=== PATIENT | male | born 1955 | race Caucasian/White ===

== ENCOUNTER 2021-12-10 01:12 | Emergency (ER) | payer OTHER ==
--- NOTE | 2021-12-10 01:20 | NUR ---
PATIENT ARRIVED [facility] WITH COMPLAINTS OF SLIPPING AND FALLING IN THE BATHROOM, PATIENT DENIES HITTING HEAD OR LOC. HE STATES THAT HE WAS GETTING OFF THE POT WAS PULLING UP PANTS WHEN HE GOT HIS FEET TANGLED AND WENT DOWN TO THE FLOOR RIGHT FOOT/ANKLE DISCOLORED , DENEIS ANY BLODD THINNERS, TENDER TO TOUCH, NOTICEABLE DEFORMED, COOL TO THE TOUCH
[2021-12-10] MEDS ORDERED: propofol 10mg/ml 20ml vial IV ONE (01:45)
--- NOTE | 2021-12-10 01:53 | NUR ---
xray at bedside at this time
--- NOTE | 2021-12-10 01:59 | NUR ---
RESPIRATOPRY AT BEDSIDE
--- NOTE | 2021-12-10 02:23 | NUR ---
PATIENT IS DOING WELL FOLLOWING THE CLOSED REDUCTION. ALERT AND VERBALLY RESPONSIVE
--- NOTE | 2021-12-10 02:24 | NUR ---
X RAY AT BEDSIDE
[2021-12-10] MEDS ORDERED: HYDR-3965 PO (02:50)
[2021-12-10 03:02] VITALS: BP 139/86
--- NOTE | 2021-12-10 04:00 | NUR ---
CALLED [facility] TO TAKE PT HOME, ETA IS 40MIN
== END 2021-12-10 04:16 | disposition home or self-care (01) ==
LOC: ER 01:12
DX: S82.854A Nondisplaced trimalleolar fracture of right lower leg, initial encounter for closed fracture (principal); Z79.899 Other long term (current) drug therapy; W19.XXXA Unspecified fall, initial encounter; Y93.89 Activity, other specified; Y92.89 Other specified places as the place of occurrence of the external cause; Y99.8 Other external cause status
CPT/HCPCS: 27786; 27818; 73600; 94760; 94799; 99152; 99153; 99285

== ENCOUNTER 2021-12-22 06:21 | Emergency (ER) | payer OTHER ==
[~2021-12-22] VITALS: Ht 174 cm; Wt 66.8 kg
[~2021-12-22 06:21] MED LIST: HYDR-3965 PO
[2021-12-22 08:12] VITALS: BP 155/92
== END 2021-12-22 08:15 | disposition home or self-care (01) ==
LOC: ER 06:22
DX: S82.851D Displaced trimalleolar fracture of right lower leg, subsequent encounter for closed fracture with routine healing (principal); L97.819 Non-pressure chronic ulcer of other part of right lower leg with unspecified severity; Z79.899 Other long term (current) drug therapy; W19.XXXD Unspecified fall, subsequent encounter
CPT/HCPCS: 99284

== ENCOUNTER 2021-12-28 16:56 | Emergency (ER) | payer OTHER ==
[~2021-12-28] VITALS: Ht 172.7 cm; Wt 67.3 kg
--- NOTE | 2021-12-28 19:15 | NUR ---
PATIENT HERE STATES THAT HE HAS THIS DISLOCATION THAT TOOK PLACE 3 WEEKS AGO, HE STATES THAT HE COULDNT GET IN TO SEE AN ORTHO SURGEON STATES [facility] AND WAS INFOMRED TO COME TO THE ER, DENIES ANT REINJURY TO THE LOCATION
--- NOTE | 2021-12-28 19:56 | NUR ---
PATIENT TO CT
[2021-12-28 22:56] VITALS: BP 124/78
== END 2021-12-28 22:58 | disposition home or self-care (01) ==
LOC: ER 16:57
DX: S82.851D Displaced trimalleolar fracture of right lower leg, subsequent encounter for closed fracture with routine healing (principal); M25.571 Pain in right ankle and joints of right foot; Z79.899 Other long term (current) drug therapy; X58.XXXD Exposure to other specified factors, subsequent encounter
CPT/HCPCS: 73700; 99284

== ENCOUNTER 2022-01-02 11:20 | Inpatient (IN) | payer OTHER ==
[~2022-01-02] VITALS: Ht 325.1 cm; Wt 65.9 kg
[2022-01-02] MEDS ORDERED: normal saline 1000ML IV soln IV ONE (11:45)
[2022-01-02 12:25] LABS: BASOPHILS % (AUTO) 0.6 % (0-1); EOSINOPHILS # (AUTO) 0.1 X10'3 (0-0.9); EOSINOPHILS % (AUTO) 0.9 % (0-6); HEMATOCRIT 22.4 % (42.0-52.0); HEMOGLOBIN 7.8 g/dl (14.0-17.9); LYMPHOCYTES # (AUTO) 0.7 X10'3 (1.1-4.8); LYMPHOCYTES % (AUTO) 9.2 % (21-51); MEAN CORPUSCULAR HEMOGLOBIN 34.7 PG (27.0-31.0); MONOCYTES # (AUTO) 0.8 X10'3 (0-0.9); MONOCYTES % (AUTO) 10.7 % (2-12); NEUTROPHILS # (AUTO) 5.9 X10'3 (1.8-7.7); NEUTROPHILS % (AUTO) 78.6 % (42-75); PLATELET COUNT 334 X10'3 (140-440); RED BLOOD COUNT 2.26 X10'6 (4.70-6.10); RED CELL DISTRIBUTION WIDTH 12.8 % (11.5-14.5); WHITE BLOOD COUNT 7.5 X10'3 (4.5-11.0)
[2022-01-02 12:46] LABS: ALANINE AMINOTRANSFERASE 14 U/L (12-78); ALBUMIN 2.2 G/DL (3.4-5.0); ALBUMIN/GLOBULIN RATIO 0.6 (1.1-1.5); ALKALINE PHOSPHATASE 69 IU/L (46-116); ANION GAP 13 (8-16); ASPARTATE AMINO TRANSFERASE 13 U/L (10-37); BILIRUBIN,TOTAL 0.2 MG/DL (0.1-1.0); BLOOD UREA NITROGEN 12 MG/DL (7-18); BUN/CREATININE RATIO 13.5 (5.4-32.0); CALCIUM 8.4 MG/DL (8.5-10.1); CHLORIDE 90 MMOL/L (99-107); CREATININE 0.89 MG/DL (0.60-1.10); GLUCOSE 119 MG/DL (70-104); POTASSIUM 3.7 MMOL/L (3.5-5.1); SODIUM 125 MMOL/L (135-145); TOTAL CARBON DIOXIDE 22.5 MMOL/L (24-32); TOTAL PROTEIN 5.7 G/DL (6.4-8.2); eGFR 86 ML/MIN
[2022-01-02 12:56] LABS: ETHANOL < 0.010 GM/DL (0.0-0.010); MAGNESIUM 1.9 MG/DL (1.5-2.4)
[2022-01-02 13:21] LABS: APTT 28 SECONDS (22-32)
[2022-01-02] MEDS ORDERED: iohexol 350MG/ML 100ml bottle IV ONE ×2 (13:28→14:14)
[2022-01-02 13:49] LABS: CLARITY,URINE CLEAR (Clear); GLUCOSE, URINE 100 mg/dl (Neg); KETONES,URINE TRACE mg/dl (Neg); LEUKOCYTE ESTERASE ,URINE NEGATIVE (Neg); NITRITES, URINE NEGATIVE (Neg); OCCULT BLOOD,URINE NEGATIVE (Neg); PROTEIN,URINE NEGATIVE (Neg); UROBILINOGEN,URINE 0.2 E.U/dL (0.2-1.0)
[2022-01-02 13:53] LABS: COLOR,URINE STRAW (Yellow); UA COLLECTION TYPE VOIDED
[2022-01-02 14:02] LABS: URINE AMPHETAMINE SCREEN NEGATIVE (Neg); URINE BARBITUATE SCREEN NEGATIVE (Neg); URINE BENZODIAZEPINES SCREEN NEGATIVE (Neg); URINE CANNABINOID SCREEN NEGATIVE (Neg); URINE COCAINE SCREEN NEGATIVE (Neg); URINE METHADONE SCREEN NEGATIVE (Neg); URINE OPIATE SCREEN NEGATIVE (Neg); URINE PHENCYCLIDINE SCREEN NEGATIVE (Neg)
[2022-01-02] MEDS ORDERED: PERFLUTREN PROTEIN-A MICROSPHR (Optison) 0.22 MG/ML 3ML VIAL IV ONE (15:25)
[2022-01-02] MEDS ORDERED: morphine 2 MG/ML inj. syringe IV PRN (15:25)
[2022-01-02] MEDS ORDERED: magnesium 2GM in 50ml NS 50 ML IV PRN (15:25)
[2022-01-02] MEDS: normal saline 1000ml 1,000 ML IV SCH (15:25)
[2022-01-02] MEDS ORDERED: ondansetron/PF 4mg/2ml inj IV PRN (15:25)
[2022-01-02] MEDS ORDERED: potassium Cl 20 mEq SR tablet PO PRN (15:25)
[2022-01-02] MEDS ORDERED: potassium CL 10mEq/100ml bag 100 ML IV PRN (15:25)
[2022-01-02] MEDS ORDERED: magnesium 4gm in 100ml NS 100 ML IV PRN (15:25)
[2022-01-02] MEDS ORDERED: magnesium Cl slow-release 64mg tablet PO PRN (15:25)
--- NOTE | 2022-01-02 17:50 | NUR ---
called report, PCU having shift change, will call back in 20 min
--- NOTE | 2022-01-02 18:25 | NUR ---
tried to call report again, floor is still getting report
--- NOTE | 2022-01-02 18:43 | NUR ---
report given to Nelsy, RN PCU
[2022-01-02 19:00] VITALS: BP 127/82
[2022-01-02] MEDS ORDERED: LevETIRAcetam 500 MG in NORMAL SALINE 100ml IV.SOLN IV SCH (20:00)
[2022-01-02] MEDS: K and/or MAG REPLACEMENT MC SCH (20:00)
[2022-01-02] MEDS: HYDROcodone/acetaminophen 5mg/325mg tablet PO PRN (20:10)
[2022-01-02 22:00] VITALS: BP 92/56
[2022-01-03] VITALS (9 sets, daily range): BP systolic 100–148; BP diastolic 58–85
[2022-01-03] MEDS: calcium carbonate 500mg chew tablet PO PRN ×3 (02:51→20:23)
[2022-01-03] MEDS: simethicone 80mg chew tab PO PRN ×2 (02:51→20:23)
[2022-01-03] MEDS: normal saline 1000ml 1,000 ML IV SCH ×5 (02:51→21:40)
[2022-01-03] MEDS: HYDROcodone/acetaminophen 5mg/325mg tablet PO PRN ×4 (04:45→20:22)
[2022-01-03 06:03] LABS: BASOPHILS # (AUTO) 0.1 X10'3 (0-0.2); BASOPHILS % (AUTO) 0.8 % (0-1); EOSINOPHILS # (AUTO) 0.1 X10'3 (0-0.9); LYMPHOCYTES # (AUTO) 0.7 X10'3 (1.1-4.8); LYMPHOCYTES % (AUTO) 10.2 % (21-51); MEAN CORPUSCULAR HEMOGLOBIN 35.2 PG (27.0-31.0); MEAN CORPUSCULAR VOLUME 100.8 FL (78-98); MEAN PLATELET VOLUME 7.1 FL (7.4-10.4); MONOCYTES # (AUTO) 0.6 X10'3 (0-0.9); MONOCYTES % (AUTO) 8.7 % (2-12); NEUTROPHILS # (AUTO) 5.1 X10'3 (1.8-7.7); NEUTROPHILS % (AUTO) 78.3 % (42-75); PLATELET COUNT 320 X10'3 (140-440); RED BLOOD COUNT 1.84 X10'6 (4.70-6.10); RED CELL DISTRIBUTION WIDTH 13.1 % (11.5-14.5); WHITE BLOOD COUNT 6.5 X10'3 (4.5-11.0)
[2022-01-03 06:08] LABS: HEMATOCRIT 18.5 % (42.0-52.0); HEMOGLOBIN 6.5 g/dl (14.0-17.9)
[2022-01-03 06:41] LABS: ANION GAP 11 (8-16); BLOOD UREA NITROGEN 9 MG/DL (7-18); CALCIUM 8.5 MG/DL (8.5-10.1); CHLORIDE 96 MMOL/L (99-107); CREATININE 0.82 MG/DL (0.60-1.10); GLUCOSE 103 MG/DL (70-104); POTASSIUM 3.4 MMOL/L (3.5-5.1); SODIUM 131 MMOL/L (135-145); TOTAL CARBON DIOXIDE 23.7 MMOL/L (24-32); eGFR > 90 ML/MIN
[2022-01-03 06:49] LABS: % IRON SATURATION 20 % (11-46); IRON 34 UG/DL (53-167); TOTAL IRON BINDING CAPACITY 172 UG/DL (259-388)
[2022-01-03] MEDS: K and/or MAG REPLACEMENT MC SCH ×2 (08:00→20:24)
--- NOTE | 2022-01-03 09:07 | NUR ---
PAGER ID: [phone] MESSAGE: Room/3025/B ShanSATHISH need a blood transfusion consent form to sign this morning. Hgb-6.5 PCU/ Mercedes/RN EXT;[id number] thank you Hct-18.5
[2022-01-03] MEDS: potassium Cl 20 mEq SR tablet PO PRN ×2 (09:40→20:23)
--- NOTE | 2022-01-03 10:10 | NUR ---
DR Childers called for Blood transfusion consent form to sign ,states she is on her way Mercedes/RN pcu
[2022-01-03] MEDS ORDERED: NO HOME MEDS (11:03)
[2022-01-03] MEDS ORDERED: VANCOMYCIN 1,500MG inj. 1,500 MG in normal saline 500ml IV soln 500 ML IV ONE (15:00)
[2022-01-03] MEDS ORDERED: ceFAZolin 2gm in dextrose, iso 100 ML IV ONE (15:00)
[2022-01-03 19:01] LABS: HEMOGLOBIN 7.8 g/dl (14.0-17.9); MEAN CORPUSCULAR HEMOGLOBIN 34.7 PG (27.0-31.0); MEAN CORPUSCULAR HGB CONC 35.8 g/dL (33.0-36.5); MEAN PLATELET VOLUME 6.7 FL (7.4-10.4); PLATELET COUNT 317 X10'3 (140-440); RED BLOOD COUNT 2.26 X10'6 (4.70-6.10); RED CELL DISTRIBUTION WIDTH 14.8 % (11.5-14.5); WHITE BLOOD COUNT 7.7 X10'3 (4.5-11.0)
[2022-01-03 19:16] LABS: HEMATOCRIT 21.9 % (42.0-52.0)
[2022-01-04] VITALS (17 sets, daily range): BP systolic 107–147; BP diastolic 53–101
[2022-01-04] MEDS: normal saline 1000ml 1,000 ML IV SCH ×4 (05:05→20:05)
[2022-01-04] MEDS: HYDROcodone/acetaminophen 5mg/325mg tablet PO PRN ×2 (05:13→10:28)
[2022-01-04 06:18] LABS: BASOPHILS # (AUTO) 0.1 X10'3 (0-0.2); EOSINOPHILS # (AUTO) 0.2 X10'3 (0-0.9); EOSINOPHILS % (AUTO) 2.8 % (0-6); HEMOGLOBIN 7.4 g/dl (14.0-17.9); LYMPHOCYTES # (AUTO) 0.9 X10'3 (1.1-4.8); LYMPHOCYTES % (AUTO) 14.3 % (21-51); MEAN CORPUSCULAR HEMOGLOBIN 33.5 PG (27.0-31.0); MEAN CORPUSCULAR HGB CONC 34.4 g/dL (33.0-36.5); MEAN CORPUSCULAR VOLUME 97.4 FL (78-98); MEAN PLATELET VOLUME 7.2 FL (7.4-10.4); MONOCYTES # (AUTO) 0.6 X10'3 (0-0.9); MONOCYTES % (AUTO) 10.2 % (2-12); NEUTROPHILS # (AUTO) 4.4 X10'3 (1.8-7.7); NEUTROPHILS % (AUTO) 71.7 % (42-75); PLATELET COUNT 314 X10'3 (140-440); RED BLOOD COUNT 2.19 X10'6 (4.70-6.10); RED CELL DISTRIBUTION WIDTH 14.9 % (11.5-14.5); WHITE BLOOD COUNT 6.1 X10'3 (4.5-11.0)
[2022-01-04 06:24] LABS: ANION GAP 9 (8-16); BLOOD UREA NITROGEN 5 MG/DL (7-18); BUN/CREATININE RATIO 7.9 (5.4-32.0); CALCIUM 7.8 MG/DL (8.5-10.1); CHLORIDE 100 MMOL/L (99-107); CREATININE 0.63 MG/DL (0.60-1.10); GLUCOSE 95 MG/DL (70-104); MAGNESIUM 1.7 MG/DL (1.5-2.4); POTASSIUM 3.6 MMOL/L (3.5-5.1); SODIUM 132 MMOL/L (135-145); TOTAL CARBON DIOXIDE 23.3 MMOL/L (24-32); eGFR > 90 ML/MIN
[2022-01-04 06:27] LABS: HEMATOCRIT 21.4 % (42.0-52.0)
--- NOTE | 2022-01-04 07:20 | NUR ---
PAGER ID: [phone] MESSAGE: Felice 3025/SATHISH OTERO V has a critical HCT:21.4 Mercedes/RN PCU/Ext [id number] (
[2022-01-04] MEDS: K and/or MAG REPLACEMENT MC SCH ×2 (07:53→20:00)
--- NOTE | 2022-01-04 15:24 | NUR ---
Patient off unit went to OR for surgery
[2022-01-04] MEDS ORDERED: sevoflurane 250ml liquid IH ONE (15:48)
[2022-01-04] MEDS ORDERED: ePHEDrine 50MG/ML INJ. ONE (15:48)
[2022-01-04] MEDS ORDERED: ondansetron/PF 4mg/2ml inj ONE (15:48)
[2022-01-04] MEDS ORDERED: dexamethasone sod phosphate 10mg/ml inj ONE (15:48)
[2022-01-04] MEDS ORDERED: FENTANYL CITRATE/PF 50 MCG/1 ML VIAL ONE (15:51)
[2022-01-04] MEDS ORDERED: MIDAZolam 1 MG/ML 5ML VIAL ONE (15:51)
[2022-01-04] MEDS ORDERED: propofol inj 20 ML IV ONE (15:55)
[2022-01-04] MEDS ORDERED: ROPIVAcaine 0.5% (5mg/ml) 30ml vial ONE (16:19)
[2022-01-04] MEDS ORDERED: BUPIVAcaine/PF 7.5mg/ml (0.75%) 10ml vial ONE (16:19)
[2022-01-04] MEDS ORDERED: rocuronium 10mg/ml inj IV ONE (16:43)
[2022-01-04] MEDS ORDERED: vancomycin/NS 1 GM ADD-VANTAGE 250 ML X 1 DOSE IV ONE (16:50)
[2022-01-04] MEDS ORDERED: ceFAZolin 1000mg inj ONE ×2 (16:58)
[2022-01-04] MEDS ORDERED: ondansetron/PF 4mg/2ml inj IV PRN ×3 (17:15→20:05)
[2022-01-04] MEDS ORDERED: proCHLORperazine 10 MG/2 ml inj IV PRN ×2 (17:15→20:05)
[2022-01-04] MEDS ORDERED: morphine 4 MG/ML inj SYRINge IV PRN ×2 (17:15→20:05)
[2022-01-04] MEDS ORDERED: meperidine/PF 25mg/ml syringe IV PRN ×4 (17:15→20:05)
[2022-01-04] MEDS ORDERED: morphine 2 MG/ML inj. syringe IV PRN ×2 (17:15→20:05)
[2022-01-04] MEDS ORDERED: ringers solution, lacted 1,000 ML IV SCH ×2 (17:15→20:05)
[2022-01-04] MEDS ORDERED: bacitracin 15gm ointment TP ONE (18:15)
[2022-01-04] MEDS ORDERED: morphine 10mg/ml inj. ONE (19:12)
[2022-01-04] MEDS ORDERED: neostigmine methylsulfate 1 MG/ML 10ml vial ONE (19:46)
[2022-01-04] MEDS ORDERED: glycopyrrolate 0.2mg/ml inj ONE (19:46)
[2022-01-04] MEDS ORDERED: bisacodyl 10mg suppository rectal RC PRN (19:50)
[2022-01-04] MEDS ORDERED: magnesium hydroxide 30ml (MOM) UD suspension PO PRN (19:50)
[2022-01-04] MEDS ORDERED: HYDROcodone/acetaminophen 10/325mg tab PO PRN ×2 (19:50)
[2022-01-04] MEDS ORDERED: vancomycin/NS 1 GM ADD-VANTAGE 250 ML IV SCH (20:00)
--- NOTE | 2022-01-04 20:02 | NUR ---
Received from OR via HOSPITAL BED, accompanied by Anesthesiologist DR CANO and report given by Anesthesiolgist. PT PRESENTS WITH PIV 22G LEFT HAND, RIGHT FOOT/ANKLE WITH JORDAN BANDAGE SHITAL PATTERSONS. Addendum: 01/04/22 at 2019 by Liya Hassan RN, RN Amended: Links added.
[2022-01-04] MEDS ORDERED: labetalol 20mg/4ml (5mg/ml) syringe IV PRN (20:05)
[2022-01-04] MEDS ORDERED: HYDROmorphone/PF 0.2 MG/ML SYRINGE IV PRN ×2 (20:05)
[2022-01-04] MEDS ORDERED: acetaminophen 1,000mg/100ml IV 100 ML IV PRN (20:05)
[2022-01-04] MEDS ORDERED: hydrALAZINE 20mg/ml inj. IV PRN (20:05)
--- NOTE | 2022-01-04 20:31 | NUR ---
TRANSFER OF CARE FROM BARBARA MCCONNELL TO TEA MCCONNELL. PT CARE IS BEING TAKEN OVER BY JAZMYN MCCONNELL. Addendum: 01/04/22 at 2031 by Liya Hassan RN RN Amended: Links added.
--- NOTE | 2022-01-04 21:22 | NUR ---
Report called to receiving nurse. Transferred via BED Belongings . Special Issues communicated to receiving nurse. DRAINAGE NOTED ON JORDAN WRAP DRESSING ON MEDIAL MALLEOLAR PRTION AND ON HEEL. DR CABALLERO IN TO SEE THE DRAINAGE ON PT'S DRESSING. HE WILL HAVE NURSING REINFORCE NEEDED. PT AWAKE, DENIES ANY PAIN OR NAUSEA, DOING WELL.
[2022-01-04] MEDS: potassium cl 20mEq in 1/2 NS 1,000 ML IV SCH (23:05)
[2022-01-05] MEDS: ceFAZolin/D5W- 1GM premix 50 ML IV SCH ×2 (00:02→08:00)
[2022-01-05] MEDS: sennosides 8.6mg tablet PO SCH ×2 (00:03→21:00)
[2022-01-05 02:00] VITALS: BP 99/65
[2022-01-05] MEDS: potassium cl 20mEq in 1/2 NS 1,000 ML IV SCH ×2 (04:52→12:26)
[2022-01-05 06:00] VITALS: BP 100/62
[2022-01-05 06:06] LABS: ANION GAP 7 (8-16); BLOOD UREA NITROGEN 10 MG/DL (7-18); BUN/CREATININE RATIO 13.5 (5.4-32.0); CALCIUM 7.5 MG/DL (8.5-10.1); CHLORIDE 99 MMOL/L (99-107); CREATININE 0.74 MG/DL (0.60-1.10); GLUCOSE 172 MG/DL (70-104); MAGNESIUM 1.7 MG/DL (1.5-2.4); POTASSIUM 4.2 MMOL/L (3.5-5.1); SODIUM 129 MMOL/L (135-145); TOTAL CARBON DIOXIDE 22.7 MMOL/L (24-32); eGFR > 90 ML/MIN
[2022-01-05 06:19] LABS: BASOPHILS % (AUTO) 0.2 % (0-1); EOSINOPHILS % (AUTO) 0 % (0-6); HEMATOCRIT 28.4 % (42.0-52.0); HEMOGLOBIN 9.5 g/dl (14.0-17.9); LYMPHOCYTES # (AUTO) 0.3 X10'3 (1.1-4.8); MEAN CORPUSCULAR HEMOGLOBIN 32.1 PG (27.0-31.0); MEAN CORPUSCULAR HGB CONC 33.7 g/dL (33.0-36.5); MEAN CORPUSCULAR VOLUME 95.2 FL (78-98); MEAN PLATELET VOLUME 7.4 FL (7.4-10.4); MONOCYTES # (AUTO) 0.5 X10'3 (0-0.9); NEUTROPHILS # (AUTO) 9.4 X10'3 (1.8-7.7); NEUTROPHILS % (AUTO) 91.8 % (42-75); PLATELET COUNT 293 X10'3 (140-440); RED BLOOD COUNT 2.98 X10'6 (4.70-6.10); RED CELL DISTRIBUTION WIDTH 16.3 % (11.5-14.5); WHITE BLOOD COUNT 10.2 X10'3 (4.5-11.0)
[2022-01-05] MEDS: K and/or MAG REPLACEMENT MC SCH ×2 (08:00→20:00)
[2022-01-05 11:00] VITALS: BP 119/67
[2022-01-05 18:00] VITALS: BP 113/76
[2022-01-05 22:00] VITALS: BP 131/81
[2022-01-06] VITALS (17 sets, daily range): BP systolic 76–116; BP diastolic 47–74
[2022-01-06 01:16] LABS: OCCULT BLOOD STOOL POSITIVE (Neg)
[2022-01-06 06:08] LABS: BASOPHILS % (AUTO) 0.7 % (0-1); EOSINOPHILS # (AUTO) 0.1 X10'3 (0-0.9); HEMOGLOBIN 7.5 g/dl (14.0-17.9); LYMPHOCYTES # (AUTO) 0.8 X10'3 (1.1-4.8); MEAN CORPUSCULAR HEMOGLOBIN 32.8 PG (27.0-31.0); MEAN CORPUSCULAR HGB CONC 34.6 g/dL (33.0-36.5); MEAN CORPUSCULAR VOLUME 94.8 FL (78-98); MEAN PLATELET VOLUME 7.1 FL (7.4-10.4); MONOCYTES # (AUTO) 0.8 X10'3 (0-0.9); MONOCYTES % (AUTO) 10.7 % (2-12); NEUTROPHILS # (AUTO) 5.4 X10'3 (1.8-7.7); NEUTROPHILS % (AUTO) 75.6 % (42-75); PLATELET COUNT 266 X10'3 (140-440); RED BLOOD COUNT 2.28 X10'6 (4.70-6.10); RED CELL DISTRIBUTION WIDTH 15.8 % (11.5-14.5); WHITE BLOOD COUNT 7.2 X10'3 (4.5-11.0)
[2022-01-06 06:11] LABS: ALBUMIN 1.8 G/DL (3.4-5.0); ANION GAP 6 (8-16); BLOOD UREA NITROGEN 15 MG/DL (7-18); BUN/CREATININE RATIO 22.4 (5.4-32.0); CHLORIDE 107 MMOL/L (99-107); CREATININE 0.67 MG/DL (0.60-1.10); GLUCOSE 105 MG/DL (70-104); POTASSIUM 4.2 MMOL/L (3.5-5.1); SODIUM 137 MMOL/L (135-145); TOTAL CARBON DIOXIDE 24.2 MMOL/L (24-32); eGFR > 90 ML/MIN
[2022-01-06 06:22] LABS: HEMATOCRIT 21.6 % (42.0-52.0)
[2022-01-06 06:40] LABS: MAGNESIUM 1.8 MG/DL (1.5-2.4)
[2022-01-06] MEDS: K and/or MAG REPLACEMENT MC SCH ×2 (07:39→20:00)
--- NOTE | 2022-01-06 07:54 | NUR ---
PAGER ID: [phone] MESSAGE: Room 3025/A Harley Rocha V Pt had a critical lab this morning Hgb 7.5, Hct 21.6
[2022-01-06 09:06] LABS: MEAN CORPUSCULAR HEMOGLOBIN 33.3 PG (27.0-31.0); MEAN CORPUSCULAR HGB CONC 34.6 g/dL (33.0-36.5); MEAN CORPUSCULAR VOLUME 96.3 FL (78-98); MEAN PLATELET VOLUME 6.8 FL (7.4-10.4); PLATELET COUNT 250 X10'3 (140-440); RED BLOOD COUNT 2.07 X10'6 (4.70-6.10); RED CELL DISTRIBUTION WIDTH 16.1 % (11.5-14.5); WHITE BLOOD COUNT 7.1 X10'3 (4.5-11.0)
[2022-01-06 09:09] LABS: HEMATOCRIT 19.9 % (42.0-52.0); HEMOGLOBIN 6.9 g/dl (14.0-17.9)
--- NOTE | 2022-01-06 09:43 | NUR ---
Initial: Pt admitted w/ ankle fx s/p fall, underwent R ankle tibiotalocalcaneal arthrodesis this admit per EMR. Currently on Regular diet w/ mostly 100% intake of meals meeting est nutrient needs at this time. [facility] 01/05 receiving routine senna. No nutrition intervention implemented at this time, will continue to monitor. Recs: 1. Continue Regular diet as tolerated 2. Bowel care per rx 3. Routine thiamine, folic acid, MVI given EtOH hx if MD agreeable 4. weekly wts Addendum: 01/06/22 at [address] Amended: Links added.
[2022-01-06] MEDS: normal saline 1000ml 1,000 ML IV SCH ×2 (10:18→20:53)
[2022-01-06] MEDS: pantoprazole 40MG/NS 100ML BAG 100 ML IV SCH ×3 (10:38→20:53)
--- NOTE | 2022-01-06 14:05 | NUR ---
assisting RN with pt care, pt is receiving first unit of PRBC, pt is GCS 15, alert and oriented x3, resp even and unlabored, no SOB, talking full sentences, skin p/w/d, increased blood to 300ml/hr, report to primary nurse.
--- NOTE | 2022-01-06 14:30 | NUR ---
GI RN at bedside to take pt for EGD, report given, pt had loose dark stool, able to roll self with min assist to clean pt up, no skin breakdown, BP has increase, see transfusion notes
[2022-01-06] MEDS ORDERED: fentaNYL/PF 50MCG/1 ML 2ML syringe ONE (14:48)
[2022-01-06] MEDS ORDERED: MIDAZolam 1 MG/ML 5ML VIAL ONE (14:48)
[2022-01-06] MEDS ORDERED: LIDOcaine Viscous 15ml cup ONE (14:48)
--- NOTE | 2022-01-06 14:50 | NUR ---
pt to GI lab
[2022-01-06 20:34] LABS: HEMATOCRIT 24.7 % (42.0-52.0); HEMOGLOBIN 8.4 g/dl (14.0-17.9); MEAN CORPUSCULAR HEMOGLOBIN 31.9 PG (27.0-31.0); MEAN CORPUSCULAR HGB CONC 33.9 g/dL (33.0-36.5); MEAN PLATELET VOLUME 7.2 FL (7.4-10.4); PLATELET COUNT 200 X10'3 (140-440); RED BLOOD COUNT 2.63 X10'6 (4.70-6.10); RED CELL DISTRIBUTION WIDTH 14.9 % (11.5-14.5); WHITE BLOOD COUNT 7.6 X10'3 (4.5-11.0)
[2022-01-06] MEDS: sennosides 8.6mg tablet PO SCH (20:53)
[2022-01-07] MEDS: pantoprazole 40MG/NS 100ML BAG 100 ML IV SCH ×5 (00:27→20:29)
[2022-01-07 02:00] VITALS: BP 127/74
[2022-01-07] MEDS: normal saline 1000ml 1,000 ML IV SCH ×4 (02:09→20:29)
[2022-01-07 06:00] VITALS: BP 119/72
[2022-01-07 06:18] LABS: BASOPHILS # (AUTO) 0.1 X10'3 (0-0.2); BASOPHILS % (AUTO) 0.9 % (0-1); EOSINOPHILS # (AUTO) 0.2 X10'3 (0-0.9); EOSINOPHILS % (AUTO) 3.6 % (0-6); HEMATOCRIT 22.8 % (42.0-52.0); HEMOGLOBIN 7.9 g/dl (14.0-17.9); LYMPHOCYTES # (AUTO) 0.9 X10'3 (1.1-4.8); LYMPHOCYTES % (AUTO) 13.4 % (21-51); MEAN CORPUSCULAR HEMOGLOBIN 32.1 PG (27.0-31.0); MEAN CORPUSCULAR HGB CONC 34.4 g/dL (33.0-36.5); MEAN CORPUSCULAR VOLUME 93.4 FL (78-98); MEAN PLATELET VOLUME 7.6 FL (7.4-10.4); MONOCYTES # (AUTO) 0.7 X10'3 (0-0.9); NEUTROPHILS # (AUTO) 4.8 X10'3 (1.8-7.7); NEUTROPHILS % (AUTO) 72.1 % (42-75); PLATELET COUNT 202 X10'3 (140-440); RED BLOOD COUNT 2.45 X10'6 (4.70-6.10); RED CELL DISTRIBUTION WIDTH 15.2 % (11.5-14.5); WHITE BLOOD COUNT 6.7 X10'3 (4.5-11.0)
[2022-01-07 06:30] LABS: ALBUMIN 1.6 G/DL (3.4-5.0); ANION GAP 8 (8-16); BLOOD UREA NITROGEN 12 MG/DL (7-18); BUN/CREATININE RATIO 17.1 (5.4-32.0); CALCIUM 7.6 MG/DL (8.5-10.1); CHLORIDE 106 MMOL/L (99-107); GLUCOSE 98 MG/DL (70-104); POTASSIUM 4.2 MMOL/L (3.5-5.1); SODIUM 136 MMOL/L (135-145); TOTAL CARBON DIOXIDE 22.4 MMOL/L (24-32); eGFR > 90 ML/MIN
[2022-01-07] MEDS: K and/or MAG REPLACEMENT MC SCH ×2 (08:00→20:29)
[2022-01-07 11:15] VITALS: BP 131/76
[2022-01-07 15:32] VITALS: BP 131/75
[2022-01-07 18:13] LABS: HEMATOCRIT 22.6 % (42.0-52.0); HEMOGLOBIN 7.8 g/dl (14.0-17.9); MEAN CORPUSCULAR HEMOGLOBIN 32.4 PG (27.0-31.0); MEAN CORPUSCULAR HGB CONC 34.6 g/dL (33.0-36.5); MEAN CORPUSCULAR VOLUME 93.7 FL (78-98); MEAN PLATELET VOLUME 7.5 FL (7.4-10.4); PLATELET COUNT 214 X10'3 (140-440); RED BLOOD COUNT 2.42 X10'6 (4.70-6.10); RED CELL DISTRIBUTION WIDTH 14.8 % (11.5-14.5); WHITE BLOOD COUNT 6.9 X10'3 (4.5-11.0)
[2022-01-07 19:00] VITALS: BP 144/76
[2022-01-07] MEDS: sennosides 8.6mg tablet PO SCH (20:29)
[2022-01-07 23:00] VITALS: BP 132/77
[2022-01-08] MEDS: pantoprazole 40MG/NS 100ML BAG 100 ML IV SCH ×6 (01:13→23:23)
--- NOTE | 2022-01-08 02:39 | NUR ---
66 years old male, admitted, 01/02/2022, day 6 of hospitalization, full code, NDA, no isolation, no restraints. OR 01/04/2022, 01/07/2022 to GI lab for GIB clips applied. Pt present 01/02/2022, to the hospital for evaluation of syncope, onset prior to arrival. reviewed the ER records and it describes that patient had a feeling of being woozy and EMS found him to have a blood pressure of 82/40 with a tachycardia at the rate of 122. However, Pt states to MD that he at no point passed out. He was at a [employer] register when his crutch fell from under him, and the lady behind the counter turned around to given the crutch, while he was trying to use it, he tripped and fell. Patient had a right ankle fracture and is awaiting follow-up with [facility] for a possible surgical intervention and has a splint on his right leg. He was evaluated in the emergency room on 12/28/2021 for his right ankle fracture, which was reduced and he was discharged home with instructions to follow-up with Dr. Salazar. Patient denies having any recent fever chills nausea vomiting abdominal pain chest pain dysuria frequency urgency hematuria melena or bright red blood per rectum. He has no focal neurological signs or symptoms. Currently, Pt is afebrile, AAO times 4, moves all extremities, follows all commands. 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 Presently, pt denies dizziness, or light headedness, denies headache, denies nausea, denies any numbness and or tingling. Telemetry box #13, SR 70's, no ectopy noted, BP 120/68, good pulses, right foot and ankle swelling from surgery. 01/02/2022 CXR NEG, 01/02/2022 ECHO EF 55-60%. IVF infusing via LFA #20. NSS 125. RR 16 PO 98% RA , Breath sounds, clear, non labored, equal symmetrical. 01/02/2022 CTA NEG. Hypoactive bowel sounds, soft, non tender, non distended, clear liquid diet well tolerated. Pt to GI LAB 01/07/2022 Clips applied, HgB 7.8. No BM. Pt remains on Protonix gtt. Glucose AC/HS, HS glucose was 90. Voids freely CYU via urinal. Bladder non distended. Surgical incision to right ankle, JORDAN wrapped and ICE machine applied. Dressings changed by wound care nurse. Pt remains safe.
[2022-01-08 03:00] VITALS: BP 128/80
[2022-01-08 06:00] VITALS: BP 122/73
--- NOTE | 2022-01-08 06:58 | NUR ---
Patient in room PCU 3025. I have received report from ENEDINA SAEZ and had the opportunity to ask questions and assume patient care.
[2022-01-08] MEDS: K and/or MAG REPLACEMENT MC SCH ×2 (08:00→20:00)
[2022-01-08 09:14] LABS: BASOPHILS # (AUTO) 0.1 X10'3 (0-0.2); EOSINOPHILS # (AUTO) 0.2 X10'3 (0-0.9); HEMOGLOBIN 7.3 g/dl (14.0-17.9); LYMPHOCYTES # (AUTO) 0.6 X10'3 (1.1-4.8)
[2022-01-08 09:18] LABS: BASOPHILS % (AUTO) 1.3 % (0-1); EOSINOPHILS % (AUTO) 4.2 % (0-6); LYMPHOCYTES % (AUTO) 13.6 % (21-51); MEAN CORPUSCULAR HEMOGLOBIN 31.7 PG (27.0-31.0); MEAN CORPUSCULAR HGB CONC 33.8 g/dL (33.0-36.5); MEAN CORPUSCULAR VOLUME 93.8 FL (78-98); MEAN PLATELET VOLUME 7.5 FL (7.4-10.4); MONOCYTES # (AUTO) 0.5 X10'3 (0-0.9); MONOCYTES % (AUTO) 9.6 % (2-12); NEUTROPHILS # (AUTO) 3.3 X10'3 (1.8-7.7); NEUTROPHILS % (AUTO) 71.3 % (42-75); PLATELET COUNT 230 X10'3 (140-440); RED BLOOD COUNT 2.32 X10'6 (4.70-6.10); RED CELL DISTRIBUTION WIDTH 14.8 % (11.5-14.5); WHITE BLOOD COUNT 4.7 X10'3 (4.5-11.0)
[2022-01-08 09:22] LABS: HEMATOCRIT 21.8 % (42.0-52.0)
[2022-01-08 09:26] LABS: ALBUMIN 1.6 G/DL (3.4-5.0); ANION GAP 8 (8-16); BLOOD UREA NITROGEN 3 MG/DL (7-18); BUN/CREATININE RATIO 4.8 (5.4-32.0); CALCIUM 7.4 MG/DL (8.5-10.1); CHLORIDE 105 MMOL/L (99-107); CREATININE 0.62 MG/DL (0.60-1.10); GLUCOSE 104 MG/DL (70-104); POTASSIUM 3.3 MMOL/L (3.5-5.1); SODIUM 136 MMOL/L (135-145); TOTAL CARBON DIOXIDE 22.7 MMOL/L (24-32); eGFR > 90 ML/MIN
--- NOTE | 2022-01-08 09:27 | NUR ---
PAGER ID: [phone] MESSAGE: Aj Souza Room Critical lab value hematocrit 21.8. Fadia 54
--- NOTE | 2022-01-08 09:33 | NUR ---
Notified MD of critical lab value Hct 21.8. Provider inquired about Hgb which is 7.3. Provider decided to not do anything about this at this time.
[2022-01-08 11:00] VITALS: BP 120/84
[2022-01-08] MEDS: normal saline 1000ml 1,000 ML IV SCH ×2 (13:01→18:00)
[2022-01-08 14:33] LABS: HEMATOCRIT 23.4 % (42.0-52.0); MEAN CORPUSCULAR HEMOGLOBIN 32.6 PG (27.0-31.0); MEAN CORPUSCULAR HGB CONC 34.3 g/dL (33.0-36.5); MEAN CORPUSCULAR VOLUME 95.2 FL (78-98); MEAN PLATELET VOLUME 7.3 FL (7.4-10.4); PLATELET COUNT 248 X10'3 (140-440); RED BLOOD COUNT 2.45 X10'6 (4.70-6.10); RED CELL DISTRIBUTION WIDTH 14.8 % (11.5-14.5); WHITE BLOOD COUNT 6.3 X10'3 (4.5-11.0)
[2022-01-08 15:00] VITALS: BP 133/83
--- NOTE | 2022-01-08 17:00 | NUR ---
Wound care completed. The incisions were healing without redness or purulent drainage. Redressed according to wound care orders.
[2022-01-08 18:00] VITALS: BP 139/70
--- NOTE | 2022-01-08 18:56 | NUR ---
Problems reprioritized. Patient report given, questions answered & plan of care reviewed with ENEDINA Porter.
[2022-01-08] MEDS: sennosides 8.6mg tablet PO SCH (20:33)
[2022-01-08 22:00] VITALS: BP 130/82
--- NOTE | 2022-01-09 00:58 | NUR ---
66 years old male, admitted, 01/02/2022, day 7 of hospitalization, full code, NDA, no isolation, no restraints. OR 01/04/2022, 01/07/2022 to GI lab for GIB clips applied. Pt present 01/02/2022, to the hospital for evaluation of syncope, onset prior to arrival. reviewed the ER records and it describes that patient had a feeling of being woozy and EMS found him to have a blood pressure of 82/40 with a tachycardia at the rate of 122. However, Pt states to MD that he at no point passed out. He was at a [employer] register when his crutch fell from under him, and the lady behind the counter turned around to given the crutch, while he was trying to use it, he tripped and fell. Patient had a right ankle fracture and is awaiting follow-up with [facility] for a possible surgical intervention and has a splint on his right leg. He was evaluated in the emergency room on 12/28/2021 for his right ankle fracture, which was reduced and he was discharged home with instructions to follow-up with Dr. Salazar. Patient denies having any recent fever chills nausea vomiting abdominal pain chest pain dysuria frequency urgency hematuria melena or bright red blood per rectum. He has no focal neurological signs or symptoms. Currently, Pt is afebrile, AAO times 4, moves all extremities, follows all commands. 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 Presently, pt denies dizziness, or light headedness, denies headache, denies nausea, denies any numbness and or tingling. Telemetry box #13, SR/ST 109, no ectopy noted, BP 139/70, good pulses, right foot and ankle swelling from surgery. 01/02/2022 CXR NEG, 01/02/2022 ECHO EF 55-60%. IVF infusing via LFA #20. NSS 125. RR 16 PO 98% RA , Breath sounds, clear, non labored, equal symmetrical. 01/02/2022 CTA NEG. Hypoactive bowel sounds, soft, non tender, non distended, full liquid diet well tolerated. Pt remains on Protonix gtt. Glucose AC/HS, HS glucose was 113. Voids freely CYU via urinal. Bladder non distended. Surgical incision to right ankle, JORDAN wrapped and ICE machine applied. Dressings changed by wound care nurse. Pt remains safe.
[2022-01-09 02:00] VITALS: BP 128/68
[2022-01-09] MEDS: normal saline 1000ml 1,000 ML IV SCH ×2 (02:00→12:22)
[2022-01-09] MEDS: pantoprazole 40MG/NS 100ML BAG 100 ML IV SCH ×4 (03:57→23:28)
[2022-01-09 06:00] VITALS: BP 130/74
[2022-01-09 06:48] LABS: BASOPHILS # (AUTO) 0.1 X10'3 (0-0.2); BASOPHILS % (AUTO) 1.3 % (0-1); EOSINOPHILS # (AUTO) 0.2 X10'3 (0-0.9); EOSINOPHILS % (AUTO) 3.6 % (0-6); HEMATOCRIT 23.3 % (42.0-52.0); HEMOGLOBIN 7.8 g/dl (14.0-17.9); LYMPHOCYTES # (AUTO) 0.7 X10'3 (1.1-4.8); LYMPHOCYTES % (AUTO) 12.7 % (21-51); MEAN CORPUSCULAR HEMOGLOBIN 31.6 PG (27.0-31.0); MEAN CORPUSCULAR HGB CONC 33.5 g/dL (33.0-36.5); MEAN CORPUSCULAR VOLUME 94.4 FL (78-98); MEAN PLATELET VOLUME 7.5 FL (7.4-10.4); MONOCYTES # (AUTO) 0.6 X10'3 (0-0.9); MONOCYTES % (AUTO) 12.3 % (2-12); NEUTROPHILS # (AUTO) 3.7 X10'3 (1.8-7.7); NEUTROPHILS % (AUTO) 70.1 % (42-75); PLATELET COUNT 252 X10'3 (140-440); RED BLOOD COUNT 2.47 X10'6 (4.70-6.10); RED CELL DISTRIBUTION WIDTH 14.8 % (11.5-14.5); WHITE BLOOD COUNT 5.2 X10'3 (4.5-11.0)
[2022-01-09 07:02] LABS: ALBUMIN 1.7 G/DL (3.4-5.0); ANION GAP 7 (8-16); BLOOD UREA NITROGEN 1 MG/DL (7-18); BUN/CREATININE RATIO 1.6 (5.4-32.0); CALCIUM 7.4 MG/DL (8.5-10.1); CHLORIDE 110 MMOL/L (99-107); CREATININE 0.61 MG/DL (0.60-1.10); GLUCOSE 98 MG/DL (70-104); POTASSIUM 3.3 MMOL/L (3.5-5.1); SODIUM 142 MMOL/L (135-145); TOTAL CARBON DIOXIDE 24.8 MMOL/L (24-32); eGFR > 90 ML/MIN
[2022-01-09] MEDS: K and/or MAG REPLACEMENT MC SCH ×3 (08:00→20:00)
[2022-01-09 11:00] VITALS: BP 141/81
[2022-01-09] MEDS ORDERED: magnesium 4gm in 100ml NS 100 ML IV PRN (13:40)
[2022-01-09] MEDS ORDERED: magnesium 2GM in 50ml NS 50 ML IV PRN (13:40)
[2022-01-09] MEDS ORDERED: magnesium Cl slow-release 64mg tablet PO PRN (13:40)
[2022-01-09] MEDS ORDERED: potassium Cl 20 mEq SR tablet PO PRN (13:40)
[2022-01-09] MEDS ORDERED: potassium CL 10mEq/100ml bag 100 ML IV PRN (13:40)
[2022-01-09 15:00] VITALS: BP 143/99
[2022-01-09] MEDS: potassium Cl 20 mEq SR tablet PO PRN (16:40)
[2022-01-09 18:00] VITALS: BP 157/85
[2022-01-09] MEDS: sennosides 8.6mg tablet PO SCH (21:00)
[2022-01-09 22:00] VITALS: BP 155/81
[2022-01-10 02:00] VITALS: BP 84/81
[2022-01-10] MEDS: pantoprazole 40MG/NS 100ML BAG 100 ML IV SCH ×3 (04:50→11:29)
[2022-01-10 06:00] VITALS: BP 143/84
--- NOTE | 2022-01-10 06:41 | NUR ---
Problems reprioritized. Patient report given, questions answered & plan of care reviewed with GUNNER MCCONNELL.
[2022-01-10 07:10] LABS: MAGNESIUM 1.9 MG/DL (1.5-2.4); POTASSIUM 3.6 MMOL/L (3.5-5.1)
--- NOTE | 2022-01-10 07:16 | NUR ---
PAGER ID: [phone] MESSAGE: [id number] CLEMENTE no cbc ordered, hgb 7.8 yesterday new order? GUNNER [id number]
--- NOTE | 2022-01-10 07:47 | NUR ---
Call to Dr Stover regarding daily dressings changes to surgical incision. Discontinue, not needed. Clean dressing at discharge.
[2022-01-10] MEDS: K and/or MAG REPLACEMENT MC SCH ×2 (08:15→20:00)
[2022-01-10 08:51] LABS: BASOPHILS # (AUTO) 0.1 X10'3 (0-0.2); BASOPHILS % (AUTO) 1.2 % (0-1); EOSINOPHILS # (AUTO) 0.2 X10'3 (0-0.9); EOSINOPHILS % (AUTO) 3.3 % (0-6); HEMATOCRIT 24.2 % (42.0-52.0); HEMOGLOBIN 8.1 g/dl (14.0-17.9); LYMPHOCYTES # (AUTO) 0.7 X10'3 (1.1-4.8); MEAN CORPUSCULAR HEMOGLOBIN 31.8 PG (27.0-31.0); MEAN CORPUSCULAR HGB CONC 33.6 g/dL (33.0-36.5); MEAN CORPUSCULAR VOLUME 94.7 FL (78-98); MEAN PLATELET VOLUME 7.6 FL (7.4-10.4); MONOCYTES # (AUTO) 0.5 X10'3 (0-0.9); MONOCYTES % (AUTO) 8.9 % (2-12); NEUTROPHILS # (AUTO) 3.9 X10'3 (1.8-7.7); NEUTROPHILS % (AUTO) 73.6 % (42-75); PLATELET COUNT 299 X10'3 (140-440); RED BLOOD COUNT 2.56 X10'6 (4.70-6.10); RED CELL DISTRIBUTION WIDTH 15.2 % (11.5-14.5); WHITE BLOOD COUNT 5.3 X10'3 (4.5-11.0)
[2022-01-10 09:00] LABS: ALBUMIN 1.7 G/DL (3.4-5.0); BLOOD UREA NITROGEN 2 MG/DL (7-18); BUN/CREATININE RATIO 2.6 (5.4-32.0); CALCIUM 8.1 MG/DL (8.5-10.1); CHLORIDE 104 MMOL/L (99-107); CREATININE 0.77 MG/DL (0.60-1.10); GLUCOSE 119 MG/DL (70-104); TOTAL CARBON DIOXIDE 23.4 MMOL/L (24-32); eGFR > 90 ML/MIN
[2022-01-10 09:44] LABS: ANION GAP 10 (8-16); SODIUM 137 MMOL/L (135-145)
[2022-01-10 09:47] LABS: POTASSIUM 3.3 MMOL/L (3.5-5.1)
[2022-01-10] MEDS: normal saline 1000ml 1,000 ML IV SCH (10:00)
[2022-01-10] MEDS ORDERED: PANT40SU2 PO (10:31)
[2022-01-10 11:00] VITALS: BP 144/80
[2022-01-10 15:00] VITALS: BP 136/81
[2022-01-10 18:00] VITALS: BP 143/79
[2022-01-10] MEDS: potassium Cl 20 mEq SR tablet PO PRN (20:53)
[2022-01-10] MEDS: pantoprazole 40mg Tablet.DR PO SCH (20:53)
[2022-01-10] MEDS: sennosides 8.6mg tablet PO SCH (20:55)
[2022-01-10 22:00] VITALS: BP 149/90
[2022-01-11] MEDS: potassium Cl 20 mEq SR tablet PO PRN (01:30)
[2022-01-11 02:00] VITALS: BP 143/93
[2022-01-11 06:00] VITALS: BP 148/90
[2022-01-11 06:58] LABS: POTASSIUM 4.1 MMOL/L (3.5-5.1)
[2022-01-11] MEDS: K and/or MAG REPLACEMENT MC SCH ×2 (08:00→20:00)
[2022-01-11] MEDS: pantoprazole 40mg Tablet.DR PO SCH ×2 (08:39→19:29)
[2022-01-11 11:00] VITALS: BP 135/79
[2022-01-11 15:00] VITALS: BP 136/79
[2022-01-11 18:00] VITALS: BP 142/85
--- NOTE | 2022-01-11 18:30 | NUR ---
Patient in room PCU 3025. I have received report from SHERIE MCCONNELL and had the opportunity to ask questions and assume patient care.
[2022-01-11] MEDS: sennosides 8.6mg tablet PO SCH (19:30)
[2022-01-11 22:00] VITALS: BP 132/75
[2022-01-12 02:00] VITALS: BP 146/78
[2022-01-12 06:00] VITALS: BP 146/77
--- NOTE | 2022-01-12 06:25 | NUR ---
Problems reprioritized. Patient report given, questions answered & plan of care reviewed with SHERIE RN.
[2022-01-12 06:39] LABS: MAGNESIUM 2.1 MG/DL (1.5-2.4); POTASSIUM 3.8 MMOL/L (3.5-5.1)
[2022-01-12] MEDS: pantoprazole 40mg Tablet.DR PO SCH ×2 (07:32→20:06)
[2022-01-12] MEDS: K and/or MAG REPLACEMENT MC SCH ×2 (08:00→18:43)
--- NOTE | 2022-01-12 10:29 | NUR ---
Reassessment: Per progress note pt reportedly with a large bloody BM 01/06. Pt s/p EGD with impression of upper GIB secondary to a giant duodenal bulb ulcer per MD note. Pt was placed on a clear liquid diet which was advanced to full liquids then eventually heart healthy (01/11). Pt continues meeting estimated nutrient needs with documented 75-100% PO intake. Recommend liberalizing to regular diet in view of no cardiac hx per EMR, d/w RN. LBM 01/12 with no documented GI symptoms. No nutrition intervention implemented at this time. Will continue to follow. Recommendations: 1. Liberalize to regular diet in view of no cardiac PMH per EMR 2. Bowel care per rx 3. Routine thiamine, folic acid, MVI given EtOH hx if MD agreeable 4. Weekly scaled weights Addendum: 01/12/22 at [address] Amended: Links added.
[2022-01-12 12:00] VITALS: BP 146/86
--- NOTE | 2022-01-12 14:59 | NUR ---
WOUND INFECTION EDUCATION PROVIDED BY WOUND CARE 1. Patient instructed to call their primary doctor, or go the ED immediately if any of the following symptoms occur: * Increased pain in wound * Increase in drainage from the wound * Redness in the skin surrounding the wound * Warmth in the skin surrounding the wound * Bleeding from the wound * Temperature of 101 or greater 2. If any of these occur while in the hospital tell a nurse immediately. PRESSURE ULCER EDUCATION: DEFINITION: A pressure ulcer is an area of skin that breaks down when you stay in one position too long. The constant pressure against the skin reduces the blood flow to that area and the affected tissue dies. CAUSES: "Being bedridden or in a wheelchair "Fragile skin "Having a chronic condition, such as diabetes or vascular disease "Inability to move certain parts of your body without assistance "Older age "Incontinence of urine or stool SYMPTOMS: "A reddened area that DOES NOT turn white when pressed on - this can be the beginning of a pressure ulcer "A blister, deep sore or a crater - these can be advanced pressure ulcers FIRST AID: "Relieve the pressure on this area "Keep the area clean and dry "Call your primary doctor if you see any of the above symptoms "DO NOT massage the area "DO NOT use a donut shaped or ring shaped pillow- these actually interfere with the blood flow and cause complications PREVENTION: "Check for pressure ulcers everyday "Change position at least every two hours to relieve pressure "Use items that help relieve pressure- pillows, sheepskin, foam padding, and powders. "Keep skin clean and dry "Eat healthy well balanced meals "Exercise daily IF YOU SEE ANY OF THESE SYMPTOMS WHILE IN THE HOSPITAL - TELL YOUR NURSE IMMEDIATELY. IF YOU SEE ANY OF THESE SYMPTOMS WHILE AT HOME OR HAVE ANY QUESTIONS OR CONCERNS ABOUT PRESSURE ULCERS - CALL YOUR PRIMARY DOCTOR IMMEDIATELY. Addendum: 01/12/22 at 1500 by Chiara Treadwell RN Amended: Links added.
[2022-01-12 15:00] VITALS: BP 126/72
[2022-01-12 15:55] LABS: BASOPHILS # (AUTO) 0.1 X10'3 (0-0.2); EOSINOPHILS # (AUTO) 0.2 X10'3 (0-0.9); EOSINOPHILS % (AUTO) 3.1 % (0-6); HEMATOCRIT 23.3 % (42.0-52.0); HEMOGLOBIN 7.9 g/dl (14.0-17.9); LYMPHOCYTES # (AUTO) 0.7 X10'3 (1.1-4.8); LYMPHOCYTES % (AUTO) 10.6 % (21-51); MEAN CORPUSCULAR HEMOGLOBIN 31.9 PG (27.0-31.0); MEAN CORPUSCULAR HGB CONC 33.7 g/dL (33.0-36.5); MEAN CORPUSCULAR VOLUME 94.9 FL (78-98); MEAN PLATELET VOLUME 7.2 FL (7.4-10.4); MONOCYTES # (AUTO) 0.7 X10'3 (0-0.9); MONOCYTES % (AUTO) 10.4 % (2-12); NEUTROPHILS # (AUTO) 4.8 X10'3 (1.8-7.7); NEUTROPHILS % (AUTO) 74.9 % (42-75); PLATELET COUNT 350 X10'3 (140-440); RED BLOOD COUNT 2.46 X10'6 (4.70-6.10); RED CELL DISTRIBUTION WIDTH 15.2 % (11.5-14.5); WHITE BLOOD COUNT 6.4 X10'3 (4.5-11.0)
[2022-01-12 15:57] LABS: ALBUMIN 1.8 G/DL (3.4-5.0); ANION GAP 4 (8-16); BLOOD UREA NITROGEN 6 MG/DL (7-18); BUN/CREATININE RATIO 8.6 (5.4-32.0); CHLORIDE 104 MMOL/L (99-107); GLUCOSE 117 MG/DL (70-104); POTASSIUM 4.2 MMOL/L (3.5-5.1); SODIUM 137 MMOL/L (135-145); TOTAL CARBON DIOXIDE 28.8 MMOL/L (24-32); eGFR > 90 ML/MIN
[2022-01-12 18:00] VITALS: BP 133/80
[2022-01-12] MEDS: sennosides 8.6mg tablet PO SCH (20:06)
[2022-01-12 22:00] VITALS: BP 141/77
[2022-01-13 02:00] VITALS: BP 133/73
[2022-01-13 06:00] VITALS: BP 135/82
[2022-01-13 06:45] LABS: BASOPHILS # (AUTO) 0.1 X10'3 (0-0.2); EOSINOPHILS # (AUTO) 0.2 X10'3 (0-0.9); EOSINOPHILS % (AUTO) 3.8 % (0-6); HEMOGLOBIN 7.9 g/dl (14.0-17.9); LYMPHOCYTES # (AUTO) 0.7 X10'3 (1.1-4.8); LYMPHOCYTES % (AUTO) 12.5 % (21-51); MEAN CORPUSCULAR HEMOGLOBIN 32.7 PG (27.0-31.0); MEAN CORPUSCULAR HGB CONC 34.2 g/dL (33.0-36.5); MEAN CORPUSCULAR VOLUME 95.5 FL (78-98); MEAN PLATELET VOLUME 7.1 FL (7.4-10.4); MONOCYTES # (AUTO) 0.5 X10'3 (0-0.9); MONOCYTES % (AUTO) 10.3 % (2-12); NEUTROPHILS # (AUTO) 3.8 X10'3 (1.8-7.7); NEUTROPHILS % (AUTO) 72.4 % (42-75); PLATELET COUNT 356 X10'3 (140-440); RED CELL DISTRIBUTION WIDTH 14.8 % (11.5-14.5); WHITE BLOOD COUNT 5.3 X10'3 (4.5-11.0)
[2022-01-13 06:58] LABS: ALBUMIN 1.9 G/DL (3.4-5.0); ANION GAP 5 (8-16); BLOOD UREA NITROGEN 5 MG/DL (7-18); BUN/CREATININE RATIO 7.7 (5.4-32.0); CALCIUM 8.1 MG/DL (8.5-10.1); CHLORIDE 107 MMOL/L (99-107); CREATININE 0.65 MG/DL (0.60-1.10); GLUCOSE 98 MG/DL (70-104); MAGNESIUM 2.1 MG/DL (1.5-2.4); SODIUM 140 MMOL/L (135-145); TOTAL CARBON DIOXIDE 28.5 MMOL/L (24-32); eGFR > 90 ML/MIN
[2022-01-13] MEDS: K and/or MAG REPLACEMENT MC SCH ×2 (08:00→20:00)
[2022-01-13] MEDS: pantoprazole 40mg Tablet.DR PO SCH ×2 (08:24→20:26)
--- NOTE | 2022-01-13 09:31 | NUR ---
Patient in room PCU 3025. I have received report from Tika and had the opportunity to ask questions and assume patient care.
[2022-01-13 11:00] VITALS: BP 134/74
[2022-01-13 15:00] VITALS: BP 122/76
--- NOTE | 2022-01-13 18:06 | NUR ---
Report received from Gretta MCCONNELL. Patient received from PCU 10 minutes before change of shift. Call light in place, patient seems comfortable and is not in distress.
--- NOTE | 2022-01-13 18:10 | NUR ---
Problems reprioritized. Patient report given, questions answered & plan of care reviewed with Samantha MCCONNELL.
--- NOTE | 2022-01-13 18:30 | NUR ---
Patient in room AVA 357. I have received report from JOANNA MCCONNELL and had the opportunity to ask questions and assume patient care.
[2022-01-13 20:00] VITALS: BP 138/88
[2022-01-13] MEDS: sennosides 8.6mg tablet PO SCH (20:26)
[2022-01-14] VITALS: BP 155/86
[2022-01-14 06:25] LABS: MAGNESIUM 2.3 MG/DL (1.5-2.4); POTASSIUM 4.2 MMOL/L (3.5-5.1)
--- NOTE | 2022-01-14 06:30 | NUR ---
Problems reprioritized. Patient report given, questions answered & plan of care reviewed with DEVIN MCCONNELL.
[2022-01-14 07:00] VITALS: BP 153/89
--- NOTE | 2022-01-14 07:43 | NUR ---
Patient in room AVA 357. I have received report from Annabella Winchester RN and had the opportunity to ask questions and assume patient care.
[2022-01-14] MEDS: K and/or MAG REPLACEMENT MC SCH ×2 (08:00→20:00)
[2022-01-14] MEDS: pantoprazole 40mg Tablet.DR PO SCH ×2 (09:21→20:16)
[2022-01-14 11:00] VITALS: BP 129/79
--- NOTE | 2022-01-14 17:41 | NUR ---
Tried to call [facility] regarding the transport they set up for patient to come to there facility. Spoke with Anita @ [phone]. She thought transport was canceled. I advised I have not been notified. Anita will call her admitting and get back with us. I also sent a text to Rebecca our shelter case manager.
--- NOTE | 2022-01-14 17:53 | NUR ---
PAGER ID: [phone] MESSAGE: Shannan-Surg [id number] Re: Souza 357B not going to [facility] until Monday. Can we get order to leave IV out.
--- NOTE | 2022-01-14 17:59 | NUR ---
Dr Earl aware patient transport to [facility] canceled today. Will not be transferred to [facility] until Monday.
--- NOTE | 2022-01-14 18:13 | NUR ---
Problems reprioritized. Patient report given, questions answered & plan of care reviewed with Irina MCCONNELL. Addendum: 01/14/22 at 1825 by Shannan Lawrence RN Correction report given to Annabella Winchester RN
--- NOTE | 2022-01-14 18:19 | NUR ---
Problems reprioritized. Patient report given, questions answered & plan of care reviewed with ENEDINA Cota.
--- NOTE | 2022-01-14 18:30 | NUR ---
Patient in room AVA 357. I have received report from DEVIN MCCONNELL and had the opportunity to ask questions and assume patient care.
[2022-01-14 20:00] VITALS: BP 155/83
[2022-01-14] MEDS: sennosides 8.6mg tablet PO SCH (20:16)
[2022-01-14] MEDS: acetaminophen 325mg tablet PO PRN (20:19)
[2022-01-15] VITALS: BP 150/85
--- NOTE | 2022-01-15 06:30 | NUR ---
Problems reprioritized. Patient report given, questions answered & plan of care reviewed with LEXY MCCONNELL.
[2022-01-15] MEDS: K and/or MAG REPLACEMENT MC SCH ×2 (07:30→20:00)
[2022-01-15] MEDS: pantoprazole 40mg Tablet.DR PO SCH ×2 (07:41→20:08)
[2022-01-15 08:00] VITALS: BP 157/91
[2022-01-15 11:00] VITALS: BP 125/82
--- NOTE | 2022-01-15 18:20 | NUR ---
Patient in room AVA 357. I have received report from ENEDINA Brewer and had the opportunity to ask questions and assume patient care. Pt sitting up in bed eating dinner, no complaints. Addendum: 01/15/22 at 1843 by Cristian Box RN Amended: Links added.
--- NOTE | 2022-01-15 18:23 | NUR ---
Report given to Marely MCCONNELL, all questions answered. Pt in bed resting comfortably, eating dinner. Patient went on walk with nursing.
[2022-01-15 19:30] VITALS: BP 152/93
[2022-01-15] MEDS: sennosides 8.6mg tablet PO SCH (20:07)
[2022-01-15] MEDS: acetaminophen 325mg tablet PO PRN (20:08)
--- NOTE | 2022-01-15 20:12 | NUR ---
pt req bg taken states bg drops when has headache Addendum: 01/15/22 at 2013 by Cristian Box RN Amended: Links added.
[2022-01-15 23:00] VITALS: BP 144/79
--- NOTE | 2022-01-16 06:05 | NUR ---
Problems reprioritized. Patient report given, questions answered & plan of care reviewed with ENEDINA ONEIL. Addendum: 01/16/22 at 0606 by Cristian Box RN Amended: Links added.
--- NOTE | 2022-01-16 06:14 | NUR ---
Patient in room AVA 357B. I have received report from ENEDINA AMAYA and had the opportunity to ask questions and assume patient care.
[2022-01-16 07:00] VITALS: BP 153/91
[2022-01-16] MEDS: pantoprazole 40mg Tablet.DR PO SCH ×2 (07:42→20:08)
[2022-01-16] MEDS: K and/or MAG REPLACEMENT MC SCH ×2 (08:00→20:00)
[2022-01-16 11:00] VITALS: BP 147/89
--- NOTE | 2022-01-16 18:30 | NUR ---
Problems reprioritized. Patient report given, questions answered & plan of care reviewed with ENEDINA AMBROSIO.
[2022-01-16 20:00] VITALS: BP 142/82
[2022-01-16] MEDS: sennosides 8.6mg tablet PO SCH (20:08)
[2022-01-17] VITALS: BP 153/92
--- NOTE | 2022-01-17 06:17 | NUR ---
Problems reprioritized. Patient report given, questions answered & plan of care reviewed with Lor MCCONNELL.
--- NOTE | 2022-01-17 07:19 | NUR ---
Patient in room AVA 357B. I have received report from ENEDINA AMBROSIO and had the opportunity to ask questions and assume patient care.
[2022-01-17 07:33] VITALS: BP 145/86
[2022-01-17] MEDS: pantoprazole 40mg Tablet.DR PO SCH (10:54)
[2022-01-17 12:44] VITALS: BP 132/71
--- NOTE | 2022-01-17 15:15 | NUR ---
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
== END 2022-01-17 15:15 | DRG 492 ==
LOC: ER 11:21 → ED HOLD 15:30 → PCU 3S 19:00 → SUR 3N 01-13 17:41
PROVIDERS: ADMIT Internal Medicine; ATTEND Internal Medicine
PROC: B32T1ZZ Computerized Tomography (CT Scan) of Left Pulmonary Artery using Low Osmolar Contrast (ICD-10-PCS; 2022-01-02)
PROC: B3201ZZ Computerized Tomography (CT Scan) of Thoracic Aorta using Low Osmolar Contrast (ICD-10-PCS; 2022-01-02)
PROC: B32S1ZZ Computerized Tomography (CT Scan) of Right Pulmonary Artery using Low Osmolar Contrast (ICD-10-PCS; 2022-01-02)
PROC: 30233N1 Transfusion of Nonautologous Red Blood Cells into Peripheral Vein, Percutaneous Approach (ICD-10-PCS; 2022-01-03)
PROC: 3E0T3BZ Introduction of Anesthetic Agent into Peripheral Nerves and Plexi, Percutaneous Approach (ICD-10-PCS; 2022-01-04)
PROC: 3E0T33Z Introduction of Anti-inflammatory into Peripheral Nerves and Plexi, Percutaneous Approach (ICD-10-PCS; 2022-01-04)
PROC: 0SGF03Z Fusion of Right Ankle Joint with Sustained Compression Internal Fixation Device, Open Approach (ICD-10-PCS; principal; 2022-01-04 15:48)
PROC: 0W3P8ZZ Control Bleeding in Gastrointestinal Tract, Via Natural or Artificial Opening Endoscopic (ICD-10-PCS; 2022-01-06)
PROC: 0DB78ZX Excision of Stomach, Pylorus, Via Natural or Artificial Opening Endoscopic, Diagnostic (ICD-10-PCS; 2022-01-06)
DX: S82.851A Displaced trimalleolar fracture of right lower leg, initial encounter for closed fracture (principal); K26.4 Chronic or unspecified duodenal ulcer with hemorrhage; D62 Acute posthemorrhagic anemia; K20.90 Esophagitis, unspecified without bleeding; J44.9 Chronic obstructive pulmonary disease, unspecified; Z20.822 Contact with and (suspected) exposure to COVID-19; I65.23 Occlusion and stenosis of bilateral carotid arteries; N62 Hypertrophy of breast; F17.210 Nicotine dependence, cigarettes, uncomplicated; M17.0 Bilateral primary osteoarthritis of knee; R55 Syncope and collapse; W01.0XXA Fall on same level from slipping, tripping and stumbling without subsequent striking against object, initial encounter; Y93.89 Activity, other specified; Y92.89 Other specified places as the place of occurrence of the external cause; Y99.8 Other external cause status; Z71.6 Tobacco abuse counseling
CPT/HCPCS: 36415; 36430; 43239; 43255; 71045; 71275; 73590; 73600; 73610; 76000; 80048; 80053; 80305; 80320; 81003; 82272; 82948; 83540; 83550; 83605; 83735; 83880; 84132; 84145; 84484; 85025; 85027; 85610; 85730; 86885; 86900; 86901; 86920; 87040; 87081; 87635; 93005; 93306; 93880; 96360; 96361; 97110; 97116; 97161; 97530; 97542; 99152; 99285; A4618; A6223; A6449; A7000; C1713; C9113; G0378; J0690; J1100; J2250; J2270; J2274; J2405; J2704; J2710; J2795; J3010; J3370; J3480; J3490; J7030; J7040; J7120; P9016; Q9967